=== PATIENT | female | born 1965 | race Caucasian/White ===

== ENCOUNTER 2023-01-18 08:55 | Outpatient (CLI) | payer OTHER, SELFPAY | END 2023-01-18 08:56 | disposition home or self-care (01) | PROVIDERS: PCP Physician Assistant Medical; Visit Provider Physician Assistant Medical | DX: Z00.00 Encounter for general adult medical examination without abnormal findings (principal); Z13.6 Encounter for screening for cardiovascular disorders; Z13.29 Encounter for screening for other suspected endocrine disorder | CPT/HCPCS: 80053; 80061; 84443 ==

== ENCOUNTER 2023-06-17 10:09 | Outpatient (CLI) | payer OTHER, SELFPAY ==
--- NOTE | 2023-06-17 10:15 | CRLHL7_ITS ---
For Patients: As a result of the Cures Act, medical imaging exams and procedure reports are released immediately into your electronic medical record. You may view this report before your referring provider. If you have questions, please contact your health care provider. INDICATION: Migraines. TECHNIQUE: Brain MRI without contrast. The following sequences were obtained: Sagittal T1 weighted sequence. DWI and ADC mapping sequences. Axial FLAIR and CONSUELO T2 weighted sequences. COMPARISON: None. FINDINGS: No evidence of acute ischemia. No evidence of acute or chronic intracranial blood products. Few small FLAIR hyperintensity scattered within the supratentorial white matter, nonspecific and could reflect chronic microvascular ischemic changes or sequela of migrainous headaches among other etiologies. No mass effect or herniation. No hydrocephalus or extra-axial collections. The pituitary gland, parasellar structures and optic chiasm are normal. Posterior fossa is normal. All the major intracranial vascular structures demonstrate normal flow-related signal. The orbital contents are normal. No calvarial or skull base marrow replacing process. No obstructive sinus disease. Large midline Tornwaldt cyst. IMPRESSION: 1. No acute infarction or other acute intracranial pathology. 2. Few nonspecific FLAIR hyperintensities within the supratentorial white matter, which could reflect chronic microvascular ischemic changes or sequela of migrainous headaches among other etiologies. Dictated by Juan Hernandez MD @ 06/17/2023 4:05:10 PM (Electronically Signed)
== END 2023-06-17 10:10 | disposition home or self-care (01) ==
LOC: MRI 10:11
PROVIDERS: PCP Physician Assistant Medical; Visit Provider Physician Assistant Medical
DX: G43.909 Migraine, unspecified, not intractable, without status migrainosus (principal)
CPT/HCPCS: 70551